=== PATIENT | female | born 1965 | race Caucasian/White ===

== ENCOUNTER 2018-08-08 05:22 | Day surgery (SDC) | payer BC ==
[2018-08-03 14:48] VITALS: BMI 26.6
--- NOTE | 2018-08-08 07:19 | HP ---
[facility] - Chief Complaint Chief Complaint: Menorrhagia History of Present Illness: This patient has a long history of heavy uterine bleeding and is here today for a uterine ablation procedure. 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: Alzheimer's, CVA, Dementia, Migraine, Multiple Sclerosis, Peripheral Neuropathy, Parkinson's, Seizure, Syncope, TIA, Vertigo, Other Cardiovascular: No: AFIB, Aneurysm, Aortic Insufficiency, Aortic Stenosis, CAD, CHF, Deep Vein Thrombosis, HTN, Hyperlipdemia, [place], Mitral Insufficiency, Mitral Stenosis, Murmur, Pulmonary Hypertension, Other Pulmonary: No: Asthma, Bronchitis, Cancer, COPD, O2 Dependent, Pneumonia, Previously Intubated, Pulmonary Embolus, Pulmonary Fibrosis, Sleep Apnea, Other Gastrointestinal: No: Ascites, Cancer, Constipation, Crohn's Disease, Diverticulitis, Diverticulosis, Esophageal Varices, Gastritis, GERD, GI Bleed, Hemorrhoids, Hiatal Hernia, Inflamatory Bowel Disease, Irritable Bowel Disease, Pancreatitis, Peptic Ulcer Disease, Ulcerative Colitis, Other Renal/: No: Renal Failure, Renal Inusuff, BPH, Cancer, Hematuria, Hemodialysis , Neurogenic Bladder, Renal Calculi, UTI, Other Reproductive: No: Ectopic , Endometriosis, Fibroids, PID, Polycystic Ovary Syndrome, Postmenopausal, Other ...LMP Comment: bleeding for 5 weeks ...: No ...: 3 ...Para: 3 Heme/Onc: No: Anemia, B12 Deficiency, Bleeding Disorder, Cancer, Current Chemotherapy, Current Radiation Therapy, Hemochromatosis, Hypercoaguable State, Myeloproliferative Synd, Sickle Cell Disease, Sickle Cell Trait, Thrombocytopenia, Other Infectious Disease: No: AIDS, C-Diff, Herpes Zoster, HIV, MRSA, STD's, Tuberculosis, VREF, Other Musculoskeletal: No: Bursitis, Chronic low back pain, Hemiparesis, Hemiplegia, Osteoarthritis, Paraplegia, Other Rheumatology: No: Fibromyalgia, Gout, Lupus, Rheumatoid Arthritis, Sarcoidosis, Vasculitis, Other ENT: No: Allergic Rhinitis, Sinusitis, Other Endocrine: Yes: Hypothyroidism Dermatology: No: Basal Cell, Cellulitis, Eczema, Melanoma, Psoriasis, Squamous Cell, Other - Current Medications Current Medications: Home Medications Medication Instructions Recorded Blood Builder Support 1 tab PO DAILY 08/03/18 Ferrous Sulfate [Feosol] 325 mg PO UTDICT 08/03/18 Levothyroxine [Synthroid -] 125 mcg PO DAILY 08/03/18 Mometasone Furoate [Asmanex 220Mcg 1 inh IH DAILY 08/03/18 -] Norgestimate-Ethinyl Estradiol 1 each PO DAILY 08/03/18 [Sprintec 28 Day Tablet] Satellite Physical Exam - Physical Examination Vital Signs: Vital Signs Period Temp Pulse Resp BP Sys/Johnson Pulse Ox Last 24 Hr 97.9 F 65 20 136/78 100 General Appearance: Well Nourished, Well Developed, Alert & Oriented x3 ENT: Clear, No Discharge, No masses Lung: Clear to auscultation Heart: Regular rate & rhythm, Normal S1, Normal S2 Breasts: Soft, Non-Tender, No masses bilaterally Abdomen: Soft, No tenderness, No CVA Extremities: No edema, No tenderness/swelling Pelvic Exam: Within normal limits External Genitalia, Within normal limits Vagina, Within normal limits Cervix, Within normal limits Uterus, Within normal limits [employer]exa Neurological: Intact, Alert, Oriented Satellite Impression/Plan - Impression/Plan Impression: menorrhagia Operative Procedure: Uterine ablation Date to be Performed: 08/08/18
[2018-08-08] MEDS ORDERED: LACTATED RINGERS SOLUTION 1,000 ML IV SCH (09:15)
[2018-08-08] MEDS ORDERED: oxyCODONE HCL 5 MG TABLET PO PRN (09:15)
--- NOTE | 2018-08-08 09:49 | OP ---
DATE OF ADMISSION: 08/08/2018 PREOPERATIVE DIAGNOSIS: Menorrhagia. POSTOPERATIVE DIAGNOSIS: Menorrhagia and fibroid uterus. SURGEON: Hung Leung MD ANESTHESIA: MAC given by anesthesiologist. ESTIMATED BLOOD LOSS: 2 mL. DESCRIPTION OF PROCEDURE: The patient was brought to the operating room, placed in a supine position, given MAC anesthesia by the anesthesiologist, placed in a lithotomy position, prepped and draped in the usual manner for hysteroscopy, thermal ablation. A speculum was placed into the vagina. Prior to that, the uterus was noted to be anteverted, adnexa negative. The anterior lip of the cervix was grasped with a tenaculum. The uterus was sounded to 10 cm. The cervix was dilated with [place] dilators. Hysteroscopy was performed using the HTA instrument. The patient was noted to have submucosal fibroids. The HTA procedure was carried out for 10 minutes. The patient tolerated the procedure well. Hemostasis was good. The procedure was terminated and the intravaginal intrauterine device was removed from the patient. The hemostasis was good. The patient's vital signs were good. The patient was then transferred to the recovery room in good condition after the completion of the endometrial ablation. HUNG LEUNG M.D. [id number]
[2018-08-08 10:50] VITALS: TEMP 97.8
[2018-08-08] MEDS ORDERED: oxyCODONE HCL 5 MG TABLET PO ONE (11:00)
[2018-08-08 13:17] VITALS: BP 147/80; PULSE 66
== END 2018-08-08 12:40 | disposition home or self-care (01) ==
LOC: JASU-SURG 05:22
PROVIDERS: ATTEND Obstetrics & Gynecology
PROC: 0U5B8ZZ Destruction of Endometrium, Via Natural or Artificial Opening Endoscopic (ICD-10-PCS; principal; 2018-08-08 08:00)
DX: N92.0 Excessive and frequent menstruation with regular cycle (principal); D25.9 Leiomyoma of uterus, unspecified
CPT/HCPCS: 84703; 86850; 86900; 86901; 94760

== ENCOUNTER 2020-12-09 06:00 | Inpatient (IN) | payer BC ==
[2020-12-04 15:05] VITALS: BMI 28.2
[2020-12-09] MEDS ORDERED: ONDANSETRON 4 MG/2 ML VIAL IVPUSH PRN ×3 (07:43→17:00)
[2020-12-09] MEDS ORDERED: IBUPROFEN 800 MG/8 ML IJ IVPB PRN ×2 (07:43→17:00)
[2020-12-09] MEDS ORDERED: IBUPROFEN 600 MG TABLET (FP) PO PRN ×2 (07:43→17:00)
[2020-12-09] MEDS ORDERED: oxyCODONE HCL 5 MG TABLET PO PRN ×2 (07:43→09:11)
[2020-12-09] MEDS ORDERED: ELECTROLYTE-148 SOLN 1,000 ML IV SCH (07:45)
[2020-12-09] MEDS ORDERED: SILVER NITRATE 75% APPLIC STCK 1 PKT EACH TP ONE (08:48)
[2020-12-09] MEDS ORDERED: ACETAMINOPHEN INJECTION 100 ML IVPB ONE (10:25)
[2020-12-09] MEDS: ACETAMINOPHEN 500 MG TABLET (FP) PO PRN ×2 (10:30→18:01)
[2020-12-09] MEDS ORDERED: oxyCODONE HCL 5 MG TABLET ONE ×2 (10:46→10:49)
[2020-12-09 15:04] LABS: BASO % 1.2 % (0-2.0); EOS % 0.8 % (0-4.5); HEMATOCRIT 30.4 % (32.4-45.2); HEMOGLOBIN 10.2 GM/dL (10.7-15.3); LYMPH % 23.4 % (8-40); MCHC 33.6 g/dl (32.0-36.0); MEAN CELL VOLUME 83.2 fl (80-96); MEAN PLT VOLUME 8.9 fl (7.5-11.1); MONO % 6.8 % (3.8-10.2); NEUT % 67.8 % (42.8-82.8); PLATELET COUNT 285 K/MM3 (134-434); RBC 3.65 M/mm3 (3.60-5.2); RDW 19.1 % (11.6-15.6); WHITE BLOOD COUNT 9.2 K/mm3 (4.0-10.0)
[2020-12-09] MEDS ORDERED: LIDOCAINE HCL 2% JELLY (5 ML/TUBE) ONE (16:38)
[2020-12-09] MEDS: oxyCODONE HCL 5 MG TABLET PO PRN (18:00)
[2020-12-09] MEDS ORDERED: LORazepam 0.5 MG TABLET PO PRN (18:18)
[2020-12-09] MEDS ORDERED: ZOLPIDEM TARTRATE 5 MG TABLET PO PRN (18:28)
[2020-12-09] MEDS ORDERED: LORazepam 0.5 MG TABLET PO ONE (18:30)
[2020-12-09] MEDS: CEFAZOLIN 2 GM/D5W 2 GM/50 ML ML IVPB SCH (18:43)
[2020-12-09] MEDS: ELECTROLYTE-148 SOLN 1,000 ML IV SCH ×2 (19:27→22:10)
[2020-12-09] MEDS: MOMETASONE FUROATE 220 MCG/IH INHALER IH SCH (21:02)
[2020-12-09] MEDS: PHENAZOPYRIDINE HCL 100 MG TABLET (FP) PO SCH (21:03)
[2020-12-09 21:47] LABS: BASO % 1.2 % (0-2.0); EOS % 2.2 % (0-4.5); HEMATOCRIT 25.9 % (32.4-45.2); HEMOGLOBIN 8.8 GM/dL (10.7-15.3); LYMPH % 31.4 % (8-40); MCH 28.3 pg (25.7-33.7); MCHC 34.1 g/dl (32.0-36.0); MEAN PLT VOLUME 8.3 fl (7.5-11.1); MONO % 7.4 % (3.8-10.2); NEUT % 57.8 % (42.8-82.8); PLATELET COUNT 262 K/MM3 (134-434); RBC 3.12 M/mm3 (3.60-5.2); RDW 19.1 % (11.6-15.6); WHITE BLOOD COUNT 7.5 K/mm3 (4.0-10.0)
[2020-12-09] MEDS ORDERED: CEFUROXIME AXETIL 500 MG TABLET PO SCH (22:00)
[2020-12-10] MEDS: CEFAZOLIN 2 GM/D5W 2 GM/50 ML ML IVPB SCH (01:32)
[2020-12-10] MEDS: LEVOTHYROXINE NA 125 MCG TABLET (FP) PO SCH (06:00)
[2020-12-10] MEDS: PHENAZOPYRIDINE HCL 100 MG TABLET (FP) PO SCH ×4 (06:00→22:09)
[2020-12-10] MEDS: oxyCODONE HCL 5 MG TABLET PO PRN ×3 (06:00→23:11)
[2020-12-10] MEDS: ELECTROLYTE-148 SOLN 1,000 ML IV SCH (06:01)
[2020-12-10 06:31] LABS: BASO % 1.3 % (0-2.0); EOS % 2.8 % (0-4.5); HEMATOCRIT 22.3 % (32.4-45.2); HEMOGLOBIN 7.5 GM/dL (10.7-15.3); LYMPH % 28.5 % (8-40); MCH 28.2 pg (25.7-33.7); MCHC 33.9 g/dl (32.0-36.0); MEAN CELL VOLUME 83.2 fl (80-96); MEAN PLT VOLUME 8.4 fl (7.5-11.1); MONO % 7.1 % (3.8-10.2); NEUT % 60.3 % (42.8-82.8); PLATELET COUNT 243 K/MM3 (134-434); RBC 2.68 M/mm3 (3.60-5.2)
[2020-12-10 09:00] LABS: POTASSIUM 4.2 mmol/L (3.5-5.1)
[2020-12-10 09:02] LABS: BLOOD UREA NITROGEN 13.6 mg/dL (7-18)
[2020-12-10 09:05] LABS: CREATININE 0.9 mg/dL (0.55-1.3)
[2020-12-10] MEDS ORDERED: PROPOFOL 20 ML ONE (11:55)
[2020-12-10] MEDS ORDERED: LIDOCAINE HCL/PF 2% SDV 5ML VIAL ONE (11:55)
[2020-12-10] MEDS ORDERED: MIDAZOLAM HCL 2 MG/2 ML SINGLE DOSE VIAL ONE (11:55)
[2020-12-10] MEDS ORDERED: IBUPROFEN 800 MG/8 ML IJ IVPB ONE ×2 (13:46→14:11)
[2020-12-10] MEDS ORDERED: LACTATED RINGERS SOLUTION 1,000 ML IV SCH (14:30)
[2020-12-10] MEDS ORDERED: LORazepam 0.5 MG TABLET PO ONE (22:00)
[2020-12-10] MEDS: MOMETASONE FUROATE 220 MCG/IH INHALER IH SCH (22:11)
[2020-12-10 23:25] LABS: BASO % 0.4 % (0-2.0); HEMATOCRIT 25.7 % (32.4-45.2); HEMOGLOBIN 8.8 GM/dL (10.7-15.3); LYMPH % 10.5 % (8-40); MCHC 34.1 g/dl (32.0-36.0); MEAN CELL VOLUME 85.1 fl (80-96); MEAN PLT VOLUME 8.4 fl (7.5-11.1); MONO % 6.5 % (3.8-10.2); NEUT % 82.6 % (42.8-82.8); PLATELET COUNT 221 K/MM3 (134-434); RBC 3.02 M/mm3 (3.60-5.2); RDW 17.2 % (11.6-15.6); WHITE BLOOD COUNT 10.3 K/mm3 (4.0-10.0)
[2020-12-11 05:20] LABS: BASO % 0.4 % (0-2.0); EOS % 0.9 % (0-4.5); HEMATOCRIT 24.4 % (32.4-45.2); HEMOGLOBIN 8.4 GM/dL (10.7-15.3); LYMPH % 19.8 % (8-40); MCH 29.2 pg (25.7-33.7); MCHC 34.4 g/dl (32.0-36.0); MEAN PLT VOLUME 8.6 fl (7.5-11.1); MONO % 9.4 % (3.8-10.2); NEUT % 69.5 % (42.8-82.8); PLATELET COUNT 209 K/MM3 (134-434); RBC 2.87 M/mm3 (3.60-5.2); RDW 16.9 % (11.6-15.6); WHITE BLOOD COUNT 10.5 K/mm3 (4.0-10.0)
[2020-12-11] MEDS: PHENAZOPYRIDINE HCL 100 MG TABLET (FP) PO SCH ×3 (06:16→21:17)
[2020-12-11] MEDS: LEVOTHYROXINE NA 125 MCG TABLET (FP) PO SCH (06:16)
[2020-12-11] MEDS: oxyCODONE HCL 5 MG TABLET PO PRN ×2 (08:32→14:27)
[2020-12-11] MEDS: ceFAZolin 2 GRAM PREMIX BAG IVPB SCH ×2 (09:29→19:05)
[2020-12-11] MEDS ORDERED: LIDOCAINE HCL 2% JELLY (5 ML/TUBE) TP ONE (15:30)
[2020-12-11 19:16] LABS: EOS % 3.8 % (0-4.5); HEMATOCRIT 33.6 % (32.4-45.2); HEMOGLOBIN 11.1 GM/dL (10.7-15.3); LYMPH % 28.8 % (8-40); MCH 27.8 pg (25.7-33.7); MCHC 32.9 g/dl (32.0-36.0); MEAN CELL VOLUME 84.5 fl (80-96); MEAN PLT VOLUME 9.1 fl (7.5-11.1); NEUT % 57.4 % (42.8-82.8); PLATELET COUNT 204 K/MM3 (134-434); RBC 3.98 M/mm3 (3.60-5.2); RDW 16.4 % (11.6-15.6); WHITE BLOOD COUNT 10.1 K/mm3 (4.0-10.0)
[2020-12-11] MEDS ORDERED: LORazepam 0.5 MG TABLET PO ONE (20:00)
[2020-12-11] MEDS ORDERED: BISACODYL 10 MG SUPP.RECT PR ONE (20:00)
[2020-12-11] MEDS: MOMETASONE FUROATE 220 MCG/IH INHALER IH SCH (21:18)
[2020-12-11] MEDS ORDERED: OXYBUTYNIN CHLORIDE 5 MG TABLET PO SCH (22:00)
[2020-12-11 22:59] LABS: EOS % 4.6 % (0-4.5); HEMATOCRIT 34.6 % (32.4-45.2); HEMOGLOBIN 11.6 GM/dL (10.7-15.3); LYMPH % 25.5 % (8-40); MCH 28.1 pg (25.7-33.7); MCHC 33.4 g/dl (32.0-36.0); MEAN CELL VOLUME 84.3 fl (80-96); MEAN PLT VOLUME 8.8 fl (7.5-11.1); MONO % 7.7 % (3.8-10.2); NEUT % 61.2 % (42.8-82.8); PLATELET COUNT 222 K/MM3 (134-434); WHITE BLOOD COUNT 11.3 K/mm3 (4.0-10.0)
[2020-12-12 01:16] VITALS: BP 131/72; PULSE 78; TEMP 98.8
== END 2020-12-12 01:20 | disposition short-term general hospital (02) | DRG 908 ==
LOC: JASU-SURG 06:00 → J3W 17:00
PROVIDERS: ADMIT Obstetrics & Gynecology; ATTEND Obstetrics & Gynecology
PROC: 0UDB8ZX Extraction of Endometrium, Via Natural or Artificial Opening Endoscopic, Diagnostic (ICD-10-PCS; 2020-12-09)
PROC: 0UJD8ZZ Inspection of Uterus and Cervix, Via Natural or Artificial Opening Endoscopic (ICD-10-PCS; principal; 2020-12-09 07:30)
PROC: 0DNW4ZZ Release Peritoneum, Percutaneous Endoscopic Approach (ICD-10-PCS; 2020-12-09 07:30)
PROC: B400YZZ Plain Radiography of Abdominal Aorta using Other Contrast (ICD-10-PCS; 2020-12-10)
PROC: BT00ZZZ Plain Radiography of Bladder (ICD-10-PCS; 2020-12-10)
PROC: 30233N1 Transfusion of Nonautologous Red Blood Cells into Peripheral Vein, Percutaneous Approach (ICD-10-PCS; 2020-12-10)
DX: N99.820 Postprocedural hemorrhage of a genitourinary system organ or structure following a genitourinary system procedure (principal); S37.29XA Other injury of bladder, initial encounter; N82.0 Vesicovaginal fistula; Y83.9 Surgical procedure, unspecified as the cause of abnormal reaction of the patient, or of later complication, without mention of misadventure at the time of the procedure; N92.0 Excessive and frequent menstruation with regular cycle; D64.9 Anemia, unspecified; K66.0 Peritoneal adhesions (postprocedural) (postinfection); R31.0 Gross hematuria; X58.XXXA Exposure to other specified factors, initial encounter; Y93.89 Activity, other specified; Y92.89 Other specified places as the place of occurrence of the external cause; Y99.9 Unspecified external cause status
CPT/HCPCS: 36415; 36430; 36511; 74174-TC; 76830-TC; 76856-TC; 80048; 81025; 85025; 86850; 86900; 86901; 86922; 88305-TC; 94760; C9803; J0131; P9038; P9058; Q9967; U0003